=== PATIENT | female | born 1965 | race Caucasian/White ===

== ENCOUNTER → 2017-02-10 | Outpatient (CLI) | payer BC ==
--- NOTE | 2017-02-10 12:32 | KCIC ---
Examination: Ultrasound abdomen complete HISTORY: History of nausea, vomiting, abdominal pain COMPARISON: None available FINDINGS: The visualized pancreas grossly appears unremarkable. The visualized aorta, IVC appears patent. The liver measures 15.4 cm. The common bile duct measures 1.6 mm in transverse dimension. There is mildly increased echogenicity identified throughout the liver. The right kidney measures 10.5 x 5.0 x 5.3 cm. The left kidney measures 9.6 x 4.6 x 5.1 cm. Bilateral parenchymal cortical scarring identified in the kidneys. The spleen measures 11.1 cm, however evaluation of the spleen is limited due to bowel gas. No evidence of gallstones. Gallbladder wall thickness measures 2.2 mm. IMPRESSION: 1. Mild increased echogenicity noted throughout the liver likely hepatic steatosis. 2. Bilateral renal cortical scarring changes. Electronically signed by: Magdy Tovar MD (02/10/2017 12:28 PM)
== END | disposition home or self-care (01) ==
LOC: KCIC US 07:54
PROVIDERS: ATTEND Family Medicine
DX: R10.9 Unspecified abdominal pain (principal); R11.2 Nausea with vomiting, unspecified
CPT/HCPCS: 76700